=== PATIENT | female | born 1955 | race Caucasian/White ===

== ENCOUNTER 2022-11-15 09:12 | Outpatient (CLI) | payer OTHER ==
[~2022-11-15 09:12] MED LIST: ASA81 MG PO; CRESTOR10 MG PO; HYZAAR 100-121 UDTAB PO; KETO10TA2 PO; ORPH100T PO; TOPROL XL50 MG PO
== END 2022-11-15 09:21 | disposition home or self-care (01) ==
LOC: MRI 09:12
PROVIDERS: ATTEND Specialist
DX: M25.511 Pain in right shoulder (principal); M75.31 Calcific tendinitis of right shoulder; M75.51 Bursitis of right shoulder
CPT/HCPCS: 73223; Q9965; 73218

== ENCOUNTER 2022-11-15 10:06 | Outpatient (CLI) | payer OTHER | END 2022-11-15 10:08 | disposition home or self-care (01) | LOC: LAB 10:06 | DX: M75.51 Bursitis of right shoulder (principal) ==

== ENCOUNTER 2024-07-25 07:45 | Inpatient (IN) | payer OTHER ==
[~2024-07-25] VITALS: Ht 165.1 cm; Wt 78.5 kg
[2024-07-25] MEDS ORDERED: PROPANOLOL (08:59)
[2024-07-25] MEDS ORDERED: ZETIA10 MG PO ×2 (09:00→09:01)
[2024-07-25] MEDS ORDERED: AMITRIPTYLINE H50 MG PO (09:05)
[2024-07-25 09:38] VITALS: BP 127/81
[2024-07-25 09:47] LABS: HEMOGLOBIN 12.8 g/dL (12.0-15.00); MEAN CELL VOLUME 88.5 fL (80.00-100.00); MEAN CORPUSCULAR HEMOGLOBIN 29.7 pg (27.00-32.0); MEAN CORPUSCULAR HGB CONC 33.6 g/dl (32.0-36.0); PLATELET COUNT 224 K/uL (150-450); RED CELL DISTRIBUTION WIDTH 15.1 % (11.5-14.5)
[2024-07-25 09:50] LABS: URINE APPEARANCE Clear; URINE BILIRRUBIN Negative (NEGATIVE); URINE BLOOD Negative; URINE COLOR Yellow; URINE GLUCOSE Negative (NEGATIVE); URINE KETONE Negative (NEGATIVE); URINE LEUKOCYTE Moderate; URINE NITRATE Negative; URINE PROTEIN Negative (NEGATIVE); URINE UROBILINOGEN 0.2 E.U./dl
[2024-07-25 09:55] LABS: URINE BACTERIA 163.9 uL (0.0-1933); URINE EPITHELIAL CELLS 10.7 uL (0.0-38.8); URINE RBC 7.6 uL (0.0-20.8); URINE WBC 21.6 uL (0.0-23.2)
[2024-07-25 10:05] LABS: URINE CAST 0.14 uL (0.0-1.40)
[2024-07-25 10:22] LABS: CHOL HDL RATIO 3.5 (0-5.0); RH POSITIVE
[2024-07-25 10:23] LABS: ALBUMIN 4.1 gm/dL (3.4-5.0); BILIRUBIN TOTAL 0.64 mg/dL (0.3-1.2); CALCIUM 9.7 mg/dL (8.5-10.1); CREATININE SERUM 0.98 mg/dL (0.55-1.02); GFR 56.44; GLOBULINA 3.5 G/DL (2.4-3.5); POTASSIUM 4.1 mEq/L (3.5-5.1); TOTAL PROTEIN 7.6 gm/dL (6.4-8.2)
[2024-07-25 10:31] LABS: INR 1.03; PARTIAL THROMBOPLASTIN TIME 26.8 SECONDS (22.0-34.0); PROTHROMBIN TIME 11.2 SECONDS (9.0-11.5)
[2024-07-31] MEDS ORDERED: KETOROLAC TROMETHAMINE 60 MG VIAL IM ONE ×3 (08:45→12:45)
[2024-07-31] MEDS ORDERED: VANCOMYCIN HCL 1,000 MG VIAL IR ONE ×4 (08:45→12:45)
[2024-07-31] MEDS ORDERED: CEFAZOLIN SODIUM 1,000 MG VIAL IV SCH ×3 (08:45→17:00)
[2024-07-31] MEDS ORDERED: LIDOCAINE HCL 1%/EPINEPHRINE 20ML VIAL IJ ONE (08:45)
[2024-07-31] MEDS ORDERED: TRANEXAMIC ACID 100MG/1ML (1000MG) AMPUL IV ONE ×4 (09:00→12:45)
[2024-07-31] MEDS ORDERED: BUPIVACAINE HCL/PF 0.25% 30ML VIAL InF ONE (09:00)
[2024-07-31] MEDS ORDERED: EPINEPHRINE HCL/PF 1 MG/ML AMPUL IR ONE (09:00)
[2024-07-31] MEDS ORDERED: ENALAPRILAT DIHYDRATE 1.25 MG/ML VIAL IV PRN (09:45)
[2024-07-31] MEDS ORDERED: MORPHINE SULFATE 4 MG/ML VIAL IV ONE (12:45)
[2024-07-31] MEDS ORDERED: POVIDONE-IODINE 118 ML BOTT TOP ONE (12:45)
[2024-07-31] MEDS ORDERED: MORPHINE SULFATE 4 MG/ML CARTRIDGE IV PRN (13:45)
[2024-07-31] MEDS ORDERED: SODIUM CHLORIDE 0.45 % 1,000 ML IV SCH (13:45)
[2024-07-31] MEDS ORDERED: ONDANSETRON HCL 2 MG/ML VIAL IV PRN (13:45)
[2024-07-31] MEDS ORDERED: CEFAZOLIN SODIUM 1,000 MG VIAL ONE (16:29)
[2024-07-31] MEDS ORDERED: GABAPENTIN 300 MG CAPSULE PO SCH (17:00)
[2024-07-31 17:59] VITALS: BP 143/81; O2SAT 96
[2024-07-31] MEDS ORDERED: ACETAMINOPHEN 500 MG GEL..CAP PO SCH (18:00)
[2024-07-31] MEDS ORDERED: CELECOXIB 200 MG CAPSULE PO SCH (21:00)
[2024-08-01 00:52] VITALS: BP 118/65; O2SAT 95
[2024-08-01 06:51] LABS: HEMATOCRIT 36.2 % (36.0-45.00); HEMOGLOBIN 12.2 g/dL (12.0-15.00); MEAN CELL VOLUME 89.6 fL (80.00-100.00); MEAN CORPUSCULAR HEMOGLOBIN 30.2 pg (27.00-32.0); MEAN CORPUSCULAR HGB CONC 33.7 g/dl (32.0-36.0); PLATELET COUNT 183 K/uL (150-450); RED BLOOD COUNT 4.04 M/uL (4.00-6.00); RED CELL DISTRIBUTION WIDTH 14.9 % (11.5-14.5)
[2024-08-01] MEDS ORDERED: ELIQUIS2.5 MG PO (08:43)
[2024-08-01] MEDS ORDERED: CEFADROXIL500 MG PO (08:43)
[2024-08-01 08:48] VITALS: BP 121/76; O2SAT 98
[2024-08-01] MEDS ORDERED: ACETAMINOPHEN-1 EAC2 PO (08:49)
[2024-08-01] MEDS ORDERED: LOSARTAN/HYDROCHLOROTHIAZIDE 1 TAB TABLET PO SCH (09:00)
[2024-08-01] MEDS ORDERED: SENNOSIDES 1 TAB TABLET PO SCH (09:00)
[2024-08-01] MEDS ORDERED: PROPRANOLOL HCL 80 MG TABLET PO SCH (09:00)
[2024-08-01] MEDS ORDERED: APIXABAN 2.5 MG TABLET PO SCH (09:00)
[2024-08-01] MEDS ORDERED: Cyanocobalamin/Mecobalamin 1 TAB.SL SL SCH (12:52)
[2024-08-01 16:00] VITALS: BP 136/77; O2SAT 95
[2024-08-01] MEDS ORDERED: VITAMIN B COMPLEX 1 EACH PO SCH (17:00)
[2024-08-02 00:56] VITALS: BP 128/66; O2SAT 97
[2024-08-02 07:22] LABS: HEMATOCRIT 35.8 % (36.0-45.00); MEAN CELL VOLUME 88.9 fL (80.00-100.00); MEAN CORPUSCULAR HEMOGLOBIN 29.8 pg (27.00-32.0); MEAN CORPUSCULAR HGB CONC 33.5 g/dl (32.0-36.0); PLATELET COUNT 173 K/uL (150-450); RED BLOOD COUNT 4.02 M/uL (4.00-6.00); RED CELL DISTRIBUTION WIDTH 14.5 % (11.5-14.5)
[2024-08-02 08:00] VITALS: BP 144/87; O2SAT 100
[2024-08-02] MEDS ORDERED: IRON FUM,PS/FOLIC ACID/VITC/B3 1 CAP CAPSULE PO SCH (09:00)
[2024-08-02] MEDS ORDERED: OxyCODONE HCL 5 MG TABLET (ROXICODONE) PO PRN (12:00)
[2024-08-02 16:26] VITALS: BP 138/69; O2SAT 97
[2024-08-02] MEDS ORDERED: DIPHENHYDRAMINE HCL 50 MG/ML VIAL 1ML ONE (21:43)
[2024-08-02] MEDS ORDERED: DIPHENHYDRAMINE HCL 50 MG/ML VIAL 1ML IV ONE (21:45)
[2024-08-03] VITALS: BP 127/71; O2SAT 95
[2024-08-03 08:00] VITALS: BP 104/65; O2SAT 96
== END 2024-08-03 13:13 | DRG 470 ==
LOC: O/R 07-31 07:20 → SURH 07-31 07:45 → O/R 07-31 13:59 → SURG 07-31 14:01
PROVIDERS: ADMIT Orthopaedic Surgery; ATTEND Orthopaedic Surgery
PROC: 0MNN0ZZ Release Right Knee Bursa and Ligament, Open Approach (ICD-10-PCS; 2024-07-31)
PROC: 0SRC0J9 Replacement of Right Knee Joint with Synthetic Substitute, Cemented, Open Approach (ICD-10-PCS; principal; 2024-07-31 13:00)
DX: M17.11 Unilateral primary osteoarthritis, right knee (principal); M22.11 Recurrent subluxation of patella, right knee